=== PATIENT | female | born 1965 | race Caucasian/White ===

== ENCOUNTER → 2019-02-11 | Outpatient (CLI) | payer BC ==
[~2019-02-11] MED LIST: ALPR1 PO; EPIN.3I; PROBIOTIC1 EAC1; PSYL5.85P; TRAM50 PO; TRIHYD253B PO
== END | disposition home or self-care (01) ==
LOC: LAB 07:30 → LAB SHORT 07:30
PROVIDERS: Nurse Practitioner
DX: Z01.419 Encounter for gynecological examination (general) (routine) without abnormal findings (principal)
CPT/HCPCS: G0145

== ENCOUNTER → 2020-04-19 | Outpatient (CLI) | payer BC ==
[~2020-04-19] MED LIST changes: +GABA100 PO; +PROG100 PO; +TRAZ50 PO; +[UNRECOGNIZED DRUG - MIXTURE] TOP
== END | disposition home or self-care (01) ==
LOC: LAB 09:26 → LAB SHORT 09:26
PROVIDERS: Nurse Practitioner
DX: Z01.419 Encounter for gynecological examination (general) (routine) without abnormal findings (principal)
CPT/HCPCS: G0145

== ENCOUNTER → 2020-05-10 | Outpatient (CLI) | payer BC ==
[2020-05-10 09:54] LABS: BASOPHILS ABSOLUTE AUTO 0.04 K/mm3 (0.00-0.23); BASOPHILS PERCENT AUTO 1 % (0-2); EOSINOPHILS ABSOLUTE AUTO 0.21 K/mm3 (0.00-0.68); EOSINOPHILS PERCENT AUTO 5 % (0-6); Hematocrit 43.1 % (33.0-51.0); Hemoglobin 14.2 g/dL (11.5-16.0); IMMATURE GRAN ABSOLUTE AUTO 0.01 K/mm3 (0.00-0.10); IMMATURE GRAN PERCENT AUTO 0 % (0-1); LYMPHOCYTES ABSOLUTE AUTO 1.32 K/mm3 (0.84-5.20); LYMPHOCYTES PERCENT AUTO 30 % (21-46); MONOCYTES ABSOLUTE AUTO 0.28 K/mm3 (0.16-1.47); MONOCYTES PERCENT AUTO 6 % (4-13); Mean Corpuscular HGB 29.2 pg (26.0-34.0); Mean Corpuscular HGB Conc 32.9 g/dL (31.5-36.5); Mean Corpuscular Volume 89 fL (80-100); Mean Platelet Volume 9.7 fL (9.1-12.4); NEUTROPHILS ABSOLUTE AUTO 2.54 K/mm3 (1.96-9.15); NEUTROPHILS PERCENT AUTO 58 % (41-73); Platelet Count 243 K/mm3 (150-400); RDW Coefficient Variation 12.2 % (11.7-14.2); RDW Standard Deviation 40.4 fL (35.1-46.3); Red Blood Cell Count 4.87 M/mm3 (3.80-5.20)
[2020-05-10 10:11] LABS: Alanine Aminotransfer (ALT/SGP 25 U/L (12-78); Albumin/Globulin Ratio 1.4 (0.8-1.8); Alk Phos 70 U/L (50-136); Anion Gap 3 mmol/L (6-16); Aspartate Aminotrans (AST/SGOT 15 U/L (12-37); Bilirubin, Total 0.4 mg/dL (0.1-1.0); Blood Urea Nitrogen 14 mg/dL (8-24); Bun/Creatinine Ratio 15.8 (12.0-20.0); CO2, Blood 31 mmol/L (21-32); Calcium, Blood 9.1 mg/dL (8.5-10.1); Chloride, Blood 107 mmol/L (98-108); Creatinine, Blood 0.89 mg/dL (0.40-1.00); Globulin, Blood 2.8 g/dL (2.2-4.0); Glomerular Filtration Rate >60 (60-); Glucose, Blood 105 mg/dL (70-99); Potassium, Blood 4.1 mmol/L (3.5-5.5); Sodium, Blood 141 mmol/L (136-145); Total Protein, Blood 6.8 g/dL (6.4-8.2)
[2020-05-10 10:30] LABS: CHOL/HDL RATIO 3.3; Cholesterol 249 mg/dL (50-200); HDL Cholesterol 76 mg/dL (>39); Low Density Lipoprotein Chol 154 mg/dL (0-110); Triglycerides 96 mg/dL (30-160); Very Low Density Lipoprot Chol 19 mg/dL (6-32)
== END ==
LOC: LAB SHORT 06:56 → PLD 06:56
PROVIDERS: Nurse Practitioner
DX: I10 Essential (primary) hypertension (principal)
CPT/HCPCS: 36415; 80053; 80061; 84443; 85025

== ENCOUNTER 2020-07-18 12:46 | Day surgery (SDC) | payer BC ==
[~2020-07-18] VITALS: Ht 162.6 cm; Wt 71.4 kg
[~2020-07-18 12:46] MED LIST changes: -PROG100 PO; -[UNRECOGNIZED DRUG - MIXTURE] TOP
[2020-07-18] MEDS ORDERED: [UNRECOGNIZED DRUG - MIXTURE] TOP (13:39)
[2020-07-18] MEDS ORDERED: PROG100 PO (13:40)
== END 2020-07-18 15:24 | disposition home or self-care (01) ==
LOC: ORSCSDS 12:46
PROVIDERS: Internal Medicine Gastroenterology
PROC: 0DBN8ZX Excision of Sigmoid Colon, Via Natural or Artificial Opening Endoscopic, Diagnostic (ICD-10-PCS; principal; 2020-07-18 14:45)
DX: Z12.11 Encounter for screening for malignant neoplasm of colon (principal); Z86.010 Personal history of colon polyps; Z80.0 Family history of malignant neoplasm of digestive organs; D12.5 Benign neoplasm of sigmoid colon; F17.210 Nicotine dependence, cigarettes, uncomplicated; Z79.899 Other long term (current) drug therapy
CPT/HCPCS: J2704; J7120

== ENCOUNTER 2024-01-15 07:07 | Day surgery (SDC) | payer BC ==
[~2024-01-15] VITALS: Ht 162.6 cm; Wt 72.3 kg
[~2024-01-15 07:07] MED LIST changes: +EPINEPhrine HCl 1 MG / ML 30ML Vial ONE; +Lidocaine 2%-Epineph 1:200000 20 ML SDV ONE; +PROG100 PO; +[UNRECOGNIZED DRUG - MIXTURE] TOP
[2024-01-15] MEDS ORDERED: PRED20 PO (07:33)
[2024-01-15] MEDS ORDERED: Rocuronium Bromide 10 MG/ML 5ML Injection IV ONE (07:37)
[2024-01-15] MEDS ORDERED: propofoL 20 ML IV ONE (07:37)
[2024-01-15] MEDS ORDERED: Midazolam HCl 1MG / ML 2ML Vial ONE (07:38)
[2024-01-15] MEDS ORDERED: FentaNYL Citrate 50 MCG/ML 2 ML Injection ONE ×2 (07:38→10:50)
[2024-01-15] MEDS ORDERED: Lactated Ringer's 1,000 ML IV ONE (07:45)
[2024-01-15] MEDS ORDERED: Scopolamine Hydrobromide Patch ONE (07:59)
[2024-01-15] MEDS ORDERED: Dexamethasone Sod Phos 10 MG/ML 1ML VIAL ONE (08:21)
[2024-01-15] MEDS ORDERED: Ondansetron HCl 2 MG / ML 2ML Vial ONE (08:21)
[2024-01-15] MEDS ORDERED: Tranexamic Acid 100 ML IV ONE (08:36)
--- NOTE | 2024-01-15 08:48 | NUR ---
01/15/24 0848 Sendy Chawla 30 MG EPI USED TO SOAK PLEDGETS FOR NASAL PACKING.
[2024-01-15] MEDS ORDERED: Phenylephrine HCl 100 MCG/ML-NS 10MLSYR (1MG/10ML) ONE (08:56)
[2024-01-15] MEDS ORDERED: Sugammadex Sodium 200 MG/2ML SDV (100 MG/ML) ONE (10:16)
[2024-01-15] MEDS ORDERED: propofoL 60 ML IV ONE (11:05)
[2024-01-15] MEDS ORDERED: OxyCODONE HCL 5 MG TAB ONE (11:22)
[2024-01-15 11:51] VITALS: BP 149/72
== END 2024-01-15 11:51 | disposition home or self-care (01) ==
LOC: ORSCSDS 07:07
PROVIDERS: Otolaryngology
PROC: 09DU4ZZ Extraction of Right Ethmoid Sinus, Percutaneous Endoscopic Approach (ICD-10-PCS; principal; 2024-01-15 08:15)
PROC: 09BR4ZZ Excision of Left Maxillary Sinus, Percutaneous Endoscopic Approach (ICD-10-PCS; principal; 2024-01-15 08:15)
PROC: 09DV4ZZ Extraction of Left Ethmoid Sinus, Percutaneous Endoscopic Approach (ICD-10-PCS; principal; 2024-01-15 08:15)
PROC: 8E09XBZ Computer Assisted Procedure of Head and Neck Region (ICD-10-PCS; principal; 2024-01-15 08:15)
DX: J32.8 Other chronic sinusitis (principal); F32.A Depression, unspecified; Z79.899 Other long term (current) drug therapy
CPT/HCPCS: 88305; 88311; A9270; C2625; J0171; J1100; J2250; J2371; J2405; J2704; J3010

== ENCOUNTER → 2024-03-17 | Outpatient (CLI) | payer BC ==
[~2024-03-17] MED LIST changes: -EPINEPhrine HCl 1 MG / ML 30ML Vial ONE; -Lidocaine 2%-Epineph 1:200000 20 ML SDV ONE; +PRED20 PO
== END ==
LOC: LAB SHORT 14:46 → LAB 14:46
DX: J32.8 Other chronic sinusitis (principal)
CPT/HCPCS: 87070; 87077; 87186